=== PATIENT | male | born 1970 | race Caucasian/White ===

== ENCOUNTER → 2017-12-06 14:21 | Outpatient (POV) | payer MEDICAID, SELFPAY ==
[2017-12-06 14:43] VITALS: BP 155/98; PULSE 74; RESP 18; O2SAT 98
--- NOTE | 2017-12-06 15:21 | HMH.PMCON ---
Assessment and Plan (1) Degenerative disc disease Current visit: Yes Status: Chronic Qualifiers: Spinal region: mid-cervical Category: Medical - Assessment and plan all Dx Assessment and Plan for all problems:: We will schedule a C5-C6 cervical epidural steroid injection for the patient. We will also start him back in physical therapy. Patient has been to other pain clinics we will need some notes from here in order to determine what he is already had done. I discussed with the patient we would not be writing any medications for him. I will follow-up with him after his injections and physical therapy. This note was dictated using voice recognition software and may contain errors or omissions HPI - Data of Consult Consult date: 12/06/17 Requesting Physician: Shanon Garcia APRN Primary Care Provider: Aisha Booth - Consult Narrative Reason for consult: Back pain History of present illness: Mr. De La Cruz is a 47 year old male in today for consultation in regards to his chronic pain. Patient rates his pain 8 out of 10 today. Patient states that his pain increases when he standing or walking for long periods of time. Patient has not done physical therapy recently. Patient has been seen by Dr. Aldrich and Dr. Yasmeen chavarria for pain management. Patient states he is getting narcotic medications. We do not have any notes from this clinic. I discussed with him that we would not be doing any medical management. Patient does have some degenerative changes in his cervical and lumbar spine according to his MRI reports. CC: Shanon Garcia APRN [facility] History I have reviewed the patient's past medical history: Yes Medical History: Reports:: Diabetes Mellitus Type 2, Hypertension Other Surgeries: Yes: Cholecystectomy, Hernia Repair, Sinus Surgery - *Social History Smoking Status: Never smoker Alcohol Intake: never Occupational Status: other Housing: house - Psychiatric History Expresses thoughts of harming self/others: None Suicide Plan Description: No Plan *Family Hx:: Unable to obtain Review of Systems - Review of Systems ROS General: no recent weight change, no fever, no sleep disturbances Respiratory: no cough, no shortness of air, no recurring pulmonary infections Cardiovascular/Peripheral Vascular: No chest pain, No palpitations, no edema, no shortness of breath. Gastrointestinal: no incontinence, normal bowel movements reported Genitourinary: no incontinence Musculoskeletal: Back pain, neck pain Psychiatric: normal mood/ affect Neurological: [denies weakness in extremities], [denies balance issues] Meds Home Medications Medication Instructions Recorded Confirmed Type Carvedilol [Carvedilol 25mg Tab] 25 mg PO DAILY 12/06/17 12/06/17 History Omeprazole [Omeprazole 40mg 40 mg PO DAILY 12/06/17 12/06/17 History Capsule] Venlafaxine HCl [Venlafaxine HCl 150 mg PO DAILY 12/06/17 12/06/17 History ER] Objective Vital signs: Pulse Resp BP Pulse Ox 74 18 155/98 H 98 12/06/17 14:43 12/06/17 14:43 12/06/17 14:43 12/06/17 14:43 Narrative: Physical Exam General: Alert and oriented x3, no acute distress, pleasant and cooperative, [on room air] Lungs: Resps E/U, Symmetrical chest expansion, Eyes: PERRL Musculoskeletal: Flexion and extension of lumbar and cervical spine somewhat guarded secondary to pain, deep tendon reflexes normal, strength in upper and lower extremities [5/5], [abnormal gait noted] Neurological: speech clear, cell tester equal, no gross sensory deficits Opioid Risk Tool - Opioid Risk Tool-Male Family hx alcohol abuse: N () Family hx illegal drugs: N Family hx rx drug abuse: N Personal hx alcohol abuse: N Personal hx illegal drugs: N Personal hx rx drug abuse: N Age: 45+ Hx of sexual abuse: N Mental health issues-ADD,OCD,Bipolar, etc: N Hx of depression: Y Male Risk Score: 1
--- NOTE | 2017-12-06 15:24 | P.CONS_ITS ---
Assessment and Plan (1) Degenerative disc disease Current visit: Yes Status: Chronic Qualifiers: Spinal region: mid-cervical Category: Medical - Assessment and plan all Dx Assessment and Plan for all problems:: We will schedule a C5-C6 cervical epidural steroid injection for the patient. We will also start him back in physical therapy. Patient has been to other pain clinics we will need some notes from here in order to determine what he is already had done. I discussed with the patient we would not be writing any medications for him. I will follow-up with him after his injections and physical therapy. This note was dictated using voice recognition software and may contain errors or omissions HPI - Data of Consult Consult date: 12/06/17 Requesting Physician: Shanon Garcia APRN Primary Care Provider: Aisha Booth - Consult Narrative Reason for consult: Back pain History of present illness: Mr. De La Cruz is a 47 year old male in today for consultation in regards to his chronic pain. Patient rates his pain 8 out of 10 today. Patient states that his pain increases when he standing or walking for long periods of time. Patient has not done physical therapy recently. Patient has been seen by Dr. Jaspreet day and Dr. Yasmeen chavarria for pain management. Patient states he is getting narcotic medications. We do not have any notes from this clinic. I discussed with him that we would not be doing any medical management. Patient does have some degenerative changes in his cervical and lumbar spine according to his MRI reports. CC: Shanon Garcia APRN [facility] History I have reviewed the patient's past medical history: Yes Medical History: Reports:: Diabetes Mellitus Type 2, Hypertension Other Surgeries: Yes: Cholecystectomy, Hernia Repair, Sinus Surgery - *Social History Smoking Status: Never smoker Alcohol Intake: never Occupational Status: other Housing: house - Psychiatric History Expresses thoughts of harming self/others: None Suicide Plan Description: No Plan *Family Hx:: Unable to obtain Review of Systems - Review of Systems ROS General: no recent weight change, no fever, no sleep disturbances Respiratory: no cough, no shortness of air, no recurring pulmonary infections Cardiovascular/Peripheral Vascular: No chest pain, No palpitations, no edema, no shortness of breath. Gastrointestinal: no incontinence, normal bowel movements reported Genitourinary: no incontinence Musculoskeletal: Back pain, neck pain Psychiatric: normal mood/ affect Neurological: [denies weakness in extremities], [denies balance issues] Meds Home Medications Medication Instructions Recorded Confirmed Type Carvedilol [Carvedilol 25mg Tab] 25 mg PO DAILY 12/06/17 12/06/17 History Omeprazole [Omeprazole 40mg 40 mg PO DAILY 12/06/17 12/06/17 History Capsule] Venlafaxine HCl [Venlafaxine HCl 150 mg PO DAILY 12/06/17 12/06/17 History ER] Objective Vital signs: Pulse Resp BP Pulse Ox 74 18 155/98 H 98 12/06/17 14:43 12/06/17 14:43 12/06/17 14:43 12/06/17 14:43 Narrative: Physical Exam General: Alert and oriented x3, no acute distress, pleasant and cooperative, [on room air] Lungs: Resps E/U, Symmetrical chest expansion, Eyes: PERRL Musculoskeletal: Fl
== END ==
PROVIDERS: PCP Family Medicine; Visit Provider Clinical Nurse Specialist Family Health
DX: M50.20 Other cervical disc displacement, unspecified cervical region (principal)
CPT/HCPCS: 99202